=== PATIENT | female | born 1985 | race Caucasian/White ===

== ENCOUNTER 2017-11-18 09:32 | Emergency (ER) | payer OTHER ==
[~2017-11-18] VITALS: Ht 157.5 cm; Wt 79.4 kg
[2017-11-18 09:40] VITALS: BP 112/89
[2017-11-18] MEDS ORDERED: IV NORMAL SALINE 1,000ML 1,000 ML IV SCH (09:59)
[2017-11-18] MEDS ORDERED: 0.9 % SODIUM CHLORIDE 10 ML DISP.SYRIN. IV PRN (10:00)
[2017-11-18] MEDS ORDERED: ONDANSETRON PF 4 MG/2 ML VIAL. IV ONE (10:15)
[2017-11-18] MEDS ORDERED: KETOROLAC 30 MG/ML VIAL. IV ONE (10:15)
--- NOTE | 2017-11-18 10:16 | PHYS DOC ---
Past History Past Medical History: No Pertinent History Past Surgical History: , Hysterectomy Alcohol Use: Occasionally Drug Use: None Adult General Chief Complaint Chief Complaint: BACK PAIN OR INJURY HPI HPI 32-year-old female patient states she woke up 5 AM because of severe left flank pain as a constant cramping pain with radiation to lower abdomen. Patient rated her pain 10 over 10 and states she had total of 3 episodes of vomiting including one episode of vomiting at arrival to ER. Patient complaining of dysuria without hematuria or frequency. Patient states the pain getting better and worse and rated her pain 6/10 at arrival to ER and states she had the same pain 2 years ago with another episode of kidney stone. She denies fever and chills and is sent dehydration. Review of Systems Review of Systems Constitutional: Denies fever or chills [] Eyes: Denies change in visual acuity, redness, or eye pain [] HENT: Denies nasal congestion or sore throat [] Respiratory: Denies cough or shortness of breath [] Cardiovascular: No additional information not addressed in HPI [] GI: Reports abdominal pain, nausea, vomiting, denies bloody stools or diarrhea [ ] : Reports dysuria, denies frequency and hematuria ,[] Musculoskeletal: Reports back pain, denies joint pain [] Integument: Denies rash or skin lesions [] Neurologic: Denies headache, focal weakness or sensory changes [] Endocrine: Denies polyuria or polydipsia [] All other systems were reviewed and found to be within normal limits, except as documented in this note. Current Medications Current Medications Current Medications Medications (Trade) Dose Ordered Sig/[facility] Start Time Stop Time Status Last Admin Dose Admin Ketorolac Tromethamine (Toradol) 30 mg 1X ONCE 11/18/17 10:00 11/18/17 10:01 UNV Ondansetron HCl (Zofran) 4 mg 1X ONCE 11/18/17 10:00 11/18/17 10:01 UNV Sodium Chloride (Normal Saline Flush) 10 ml QSHIFT PRN 11/18/17 10:00 UNV Physical Exam Physical Exam Constitutional: Well developed, well nourished, other rate distress, non-toxic appearance. [] HENT: Normocephalic, atraumatic, oropharynx moist, no oral exudates. [] Eyes: PERRLA, EOMI, conjunctiva normal, no discharge. [] Neck: Normal range of motion, no tenderness, supple, no stridor. [] Cardiovascular:Heart rate regular rhythm, no murmur [] Lungs & Thorax: Bilateral breath sounds clear to auscultation [] Abdomen: Bowel sounds normal, soft, no tenderness, no masses, no pulsatile masses. [] Skin: Warm, dry, no erythema, no rash. [] Back: No tenderness, left CVA tenderness Extremities: No tenderness, no cyanosis, no clubbing, ROM intact, no edema. [] Neurologic: Alert and oriented X 3, normal motor function, normal sensory function, no focal deficits noted. [] Psychologic: Affect normal, judgement normal, mood normal. [] Current Patient Data Vital Signs Vital Signs Date Time Temp Pulse Resp B/P (MAP) Pulse Ox O2 Delivery O2 Flow Rate FiO2 11/18/17 09:40 97.7 89 16 99 Room Air EKG EKG [] Radiology/Procedures Radiology/Procedures [] [place] [address] IMAGING REPORT Signed PATIENT: YINKA NAZARIO ACCOUNT: [id number] : 1985 LOCATION: ER AGE: 32 SEX: F EXAM STATUS: REG ER ORD. PHYSICIAN: JENNY RAYO MD REASON: left flank pain PROCEDURE: CT ABDOMEN PELVIS WO CONTRAST CT abdomen and pelvis without contrast Technique: Helical multiplanar reconstructed noncontrast CT imaging of the abdomen and pelvis was acquired. History: Left flank pain for one day, history of kidney stones. Abdomen findings: Liver, gallbladder, pancreas, adrenal glands, spleen and kidneys are unremarkable. No perinephric edema, nephroureterolithiasis or hydronephrosis. The appendix is negative with a diameter of 3 mm. No obstruction or inflammatory change of the GI tract. Lung bases and bones are unremarkable. Mild disc bulge at L5-S1. Pelvis findings: Hysterectomy. There is mild groundglass density surrounding the bladder could be edema cystitis. No bladder calculi. Pelvic phleboliths are present none of which localized to the distal ureters to suggest a ureteral calculus. Trace dependent pelvic fluid of the cul-de-sac. Right ovary absent or atrophic and obscured by surrounding bowel loops. Left ovary is enlarged associated with a 3.5 cm cystic lesion with an internal density of 18 units. There is a surgical clip along the lateral margin of the left ovary and lesion perhaps from prior tubal ligation. At the right perirectal fat there is a 10 mm soft tissue nodule perhaps a enlarged lymph node. Bones are unremarkable. Impression: 1. Mild groundglass edema surrounding the bladder could be indicative of cystitis. No nephroureterolithiasis or hydronephrosis. 2. The appendix is negative. 3. Hysterectomy. Left ovary enlarged associated with a 3.5 cm cystic lesion. This could be a follicular or hemorrhagic cyst although cystic neoplasm or changes from ovarian torsion are not excluded for which sonography could provide further assessment based on the level of clinical suspicion. 4. 10 mm soft tissue nodule of the right perirectal fat could be a mildly enlarged lymph node. The rectum is unremarkable. DICTATED AND SIGNED BY: ADELA PEREZ MD DATE: 11/18/17 7694 CC: JENNY RAYO MD; ALEKSANDRA NELSON APRN ~ Course & Med Decision Making Course & Med Decision Making Pertinent Labs and Imaging studies reviewed. (See chart for details) Evaluation of patient in ER showed 32-year-old female patient complaining of flank pain and nausea and vomiting. Patient had left CVA tenderness and treated with IV fluid and Zofran and Toradol and better. Patient was working on his associated pain did not change. Patient had fentanyl and states the pain improved but returned again. Patient had unremarkable labs except for mild hematuria. CT of abdomen and pelvis showed mild bladder edema related to cystitis without urolithiasis. Patient informed about the test result and needs to follow-up with her primary care physician. Dragon Disclaimer Dragon Disclaimer This electronic medical record was generated, in whole or in part, using a voice recognition dictation system. Departure Departure: Impression: Primary Impression: Left flank pain Additional Impressions: Cystitis Nausea and vomiting Disposition: 01 HOME, SELF-CARE (At ) Condition: IMPROVED Referrals: ALEKSANDRA NELSON APRN (PCP) Patient Instructions: Flank Pain Additional Instructions: Drink plenty of liquids Follow-up with your primary care physician in 3-5 days Return to ER if not getting better Scripts Ciprofloxacin Hcl (CIPRO) 250 Mg Tablet 1 TAB PO BID, #6 TAB Prov: JENNY RAYO MD 11/18/17 Phenazopyridine Hcl (PYRIDIUM) 100 Mg Tablet 100 MG PO BID, #10 TAB Prov: JENNY RAYO MD 11/18/17 [Percogesic] No Conflict Check 1 TAB PO QID Y for PAIN, #14 Prov: JENNY RAYO MD 11/18/17 Problem Qualifiers JENNY RAYO MD Nov 18, 2017 10:16
[2017-11-18 10:17] LABS: BASO # 0.1 x10^3/uL (0.0-0.2); BASO % 1 % (0-3); EOS # 0.3 x10^3/uL (0.0-0.7); EOS % 3 % (0-3); HEMATOCRIT 42.4 % (36.0-47.0); HEMOGLOBIN 14.3 g/dL (12.0-15.5); LYMPH # 1.8 x10^3/uL (1.0-4.8); LYMPH % 20 % (24-48); MEAN CORPUSCULAR HEMOGLOBIN 30 pg (25-35); MEAN CORPUSCULAR HGB CONC 34 g/dL (31-37); MEAN CORPUSCULAR VOLUME 89 fL (79-100); MONO # 0.6 x10^3/uL (0.0-1.1); MONO % 7 % (0-9); NEUT # 6.2 x10^3uL (1.8-7.7); NEUT % 69 % (31-73); PLATELET COUNT 229 x10^3/uL (140-400); RED BLOOD COUNT 4.79 x10^6/uL (3.50-5.40); RED CELL DISTRIBUTION WIDTH 12.7 % (11.5-14.5)
[2017-11-18 10:28] LABS: ALBUMIN 4.2 g/dL (3.4-5.0); ALBUMIN/GLOBULIN RATIO 1.1 (1.0-1.7); CALCIUM 9.3 mg/dL (8.5-10.1); CREATININE 0.9 mg/dL (0.6-1.0); GFR 72.1; POTASSIUM 3.5 mmol/L (3.5-5.1); TOTAL BILIRUBIN 0.5 mg/dL (0.2-1.0)
--- NOTE | 2017-11-18 11:08 | RAD ---
CT abdomen and pelvis without contrast Technique: Helical multiplanar reconstructed noncontrast CT imaging of the abdomen and pelvis was acquired. History: Left flank pain for one day, history of kidney stones. Abdomen findings: Liver, gallbladder, pancreas, adrenal glands, spleen and kidneys are unremarkable. No perinephric edema, nephroureterolithiasis or hydronephrosis. The appendix is negative with a diameter of 3 mm. No obstruction or inflammatory change of the GI tract. Lung bases and bones are unremarkable. Mild disc bulge at L5-S1. Pelvis findings: Hysterectomy. There is mild groundglass density surrounding the bladder could be edema cystitis. No bladder calculi. Pelvic phleboliths are present none of which localized to the distal ureters to suggest a ureteral calculus. Trace dependent pelvic fluid of the cul-de-sac. Right ovary absent or atrophic and obscured by surrounding bowel loops. Left ovary is enlarged associated with a 3.5 cm cystic lesion with an internal density of 18 units. There is a surgical clip along the lateral margin of the left ovary and lesion perhaps from prior tubal ligation. At the right perirectal fat there is a 10 mm soft tissue nodule perhaps a enlarged lymph node. Bones are unremarkable. Impression: 1. Mild groundglass edema surrounding the bladder could be indicative of cystitis. No nephroureterolithiasis or hydronephrosis. 2. The appendix is negative. 3. Hysterectomy. Left ovary enlarged associated with a 3.5 cm cystic lesion. This could be a follicular or hemorrhagic cyst although cystic neoplasm or changes from ovarian torsion are not excluded for which sonography could provide further assessment based on the level of clinical suspicion. 4. 10 mm soft tissue nodule of the right perirectal fat could be a mildly enlarged lymph node. The rectum is unremarkable.
[2017-11-18 12:08] LABS: BILIRUBIN,URINE NEG (NEG); CLARITY,URINE CLEAR; COLOR,URINE YELLOW; GLUCOSE,URINE NEG (NEG); NITRITE,URINE NEG (NEG); UROBILINOGEN,URINE 0.2 mg/dL (0.2 mg/dL); WBC,URINE RARE /HPF (0-4)
[2017-11-18 12:09] LABS: BACTERIA,URINE 0 /HPF (0-FEW); SQUAMOUS EPITHELIAL CELL,UR OCC /LPF
[2017-11-18] MEDS ORDERED: PHEN100T82 PO (12:34)
[2017-11-18] MEDS ORDERED: CIPR250T30 PO (12:34)
[2017-11-18] MEDS ORDERED: Percogesic PO (12:34)
== END 2017-11-18 12:50 | disposition home or self-care (01) ==
LOC: ER 09:32
DX: N30.90 Cystitis, unspecified without hematuria (principal); Z90.710 Acquired absence of both cervix and uterus
CPT/HCPCS: 36415; 74176; 80053; 81001; 83690; 85025; 96361; 96374; 96375; 99285; J1885; J2405; J3010; J7030

== ENCOUNTER 2018-01-09 13:23 | Emergency (ER) | payer OTHER ==
[~2018-01-09] VITALS: Ht 157.5 cm; Wt 79.4 kg
[~2018-01-09 13:23] MED LIST: CIPR250T30 PO; PHEN100T82 PO; Percogesic PO
[2018-01-09 14:14] LABS: BASO % 1 % (0-3); EOS # 0.5 x10^3/uL (0.0-0.7); EOS % 6 % (0-3); HEMATOCRIT 43.4 % (36.0-47.0); HEMOGLOBIN 14.6 g/dL (12.0-15.5); LYMPH # 1.8 x10^3/uL (1.0-4.8); LYMPH % 24 % (24-48); MEAN CORPUSCULAR HEMOGLOBIN 30 pg (25-35); MEAN CORPUSCULAR HGB CONC 34 g/dL (31-37); MEAN CORPUSCULAR VOLUME 89 fL (79-100); MONO # 0.6 x10^3/uL (0.0-1.1); MONO % 7 % (0-9); NEUT # 4.6 x10^3uL (1.8-7.7); NEUT % 62 % (31-73); PLATELET COUNT 237 x10^3/uL (140-400); RED BLOOD COUNT 4.88 x10^6/uL (3.50-5.40); WHITE BLOOD COUNT 7.4 x10^3/uL (4.0-11.0)
[2018-01-09 14:19] LABS: BACTERIA,URINE 0 /HPF (0-FEW); BILIRUBIN,URINE NEG (NEG); CLARITY,URINE HAZY; COLOR,URINE YELLOW; GLUCOSE,URINE NEG (NEG); NITRITE,URINE NEG (NEG); RBC,URINE 0 /HPF (0-2); SQUAMOUS EPITHELIAL CELL,UR FEW /LPF; UROBILINOGEN,URINE 0.2 mg/dL (0.2 mg/dL); WBC,URINE 0 /HPF (0-4)
[2018-01-09 14:27] LABS: ALBUMIN 4.1 g/dL (3.4-5.0); ALBUMIN/GLOBULIN RATIO 1.1 (1.0-1.7); CALCIUM 9.2 mg/dL (8.5-10.1); CREATININE 0.8 mg/dL (0.6-1.0); GFR 82.6; POTASSIUM 3.7 mmol/L (3.5-5.1); TOTAL BILIRUBIN 0.6 mg/dL (0.2-1.0); TOTAL PROTEIN 7.9 g/dL (6.4-8.2)
[2018-01-09] MEDS ORDERED: ONDANSETRON PF 4 MG/2 ML VIAL. IV ONE (14:45)
[2018-01-09] MEDS ORDERED: IV NORMAL SALINE 1,000ML 1,000 ML IV ONE (14:45)
--- NOTE | 2018-01-09 14:48 | ED.ADGEN ---
Past History Past Medical History: Other Past Surgical History: Hysterectomy Alcohol Use: Occasionally Drug Use: None Adult General Chief Complaint Chief Complaint Abdominal pain HPI HPI Patient is a 32-year-old female presents with intermittent right upper call daily abdominal pain 6 days. Pain is this grabbed his cramping, last for minutes to hours at a time. It is worse after eating is related moderate to severe and nonradiating and nonmigratory. Pain is associated with nausea and vomiting. One episodes of diarrhea. Vomitus contained food contents and bile. No fever chills or sweats.[] Review of Systems Review of Systems ROS as per HPI. All other systems were reviewed and found to be within normal limits, except as documented in this note. Current Medications Current Medications Current Medications Medications (Trade) Dose Ordered Sig/Alise Start Time Stop Time Status Last Admin Dose Admin Fentanyl Citrate (Fentanyl 2ml Vial) 50 mcg 1X ONCE 01/09/18 14:45 01/09/18 14:46 DC 01/09/18 15:33 50 MCG Ondansetron HCl (Zofran) 4 mg 1X ONCE 01/09/18 14:45 01/09/18 14:46 DC 01/09/18 15:33 4 MG Sodium Chloride 1,000 ml @ 1,000 mls/hr 1X ONCE 01/09/18 14:45 01/09/18 15:44 01/09/18 14:45 1,000 MLS/HR Allergies Allergies Allergies Coded Allergies Type Severity Reaction Last Updated Verified aspirin Allergy Unknown 11/18/17 Yes Physical Exam Physical Exam Constitutional: Well developed, well nourished, no acute distress, non-toxic appearance. [] HENT: Normocephalic, atraumatic, bilateral external ears normal, oropharynx moist, nose normal. [] Eyes: PERRLA, EOMI, conjunctiva normal, no discharge. [] Neck: Normal range of motion.[] Cardiovascular:Heart rate regular rhythm, no murmur [] Lungs & Thorax: Bilateral breath sounds clear to auscultation [] Abdomen: Bowel sounds normal, soft, RUQ pain/tenderness, + Abdi's sign. [] Skin: Warm, dry, no erythema, no rash. [] Back: No tenderness, no CVA tenderness. [] Extremities: No tenderness, no edema. [] Neurologic: Alert and oriented X 3, normal motor function, normal sensory function, no focal deficits noted. [] Psychologic: Affect normal, judgement normal, mood normal. [] Current Patient Data Vital Signs Vital Signs Date Time Temp Pulse Resp B/P (MAP) Pulse Ox O2 Delivery O2 Flow Rate FiO2 01/09/18 15:33 18 98 Room Air 01/09/18 15:01 81 137/83 (101) 01/09/18 13:30 98.1 Lab Results Laboratory Tests Test 01/09/18 13:55 01/09/18 13:56 Urine Collection Type Unknown Urine Color Yellow Urine Clarity Hazy Urine pH 8.0 Urine Specific [place] 1.020 Urine Protein Neg (NEG-TRACE) Urine Glucose (UA) Neg mg/dL (NEG) Urine Ketones (Stick) Neg mg/dL (NEG) Urine Blood Neg (NEG) Urine Nitrite Neg (NEG) Urine Bilirubin Neg (NEG) Urine Urobilinogen Dipstick 0.2 mg/dL (0.2 mg/dL) Urine Leukocyte Esterase Neg (NEG) Urine RBC 0 /HPF (0-2) Urine WBC 0 /HPF (0-4) Urine Squamous Epithelial Cells Few /LPF Urine Bacteria 0 /HPF (0-FEW) White Blood Count 7.4 x10^3/uL (4.0-11.0) Red Blood Count 4.88 x10^6/uL (3.50-5.40) Hemoglobin 14.6 g/dL (12.0-15.5) Hematocrit 43.4 % (36.0-47.0) Mean Corpuscular Volume 89 fL (79-100) Mean Corpuscular Hemoglobin 30 pg (25-35) Mean Corpuscular Hemoglobin Concent 34 g/dL (31-37) Red Cell Distribution Width 13.0 % (11.5-14.5) Platelet Count 237 x10^3/uL (140-400) Neutrophils (%) (Auto) 62 % (31-73) Lymphocytes (%) (Auto) 24 % (24-48) Monocytes (%) (Auto) 7 % (0-9) Eosinophils (%) (Auto) 6 % (0-3) H Basophils (%) (Auto) 1 % (0-3) Neutrophils # (Auto) 4.6 x10^3uL (1.8-7.7) Lymphocytes # (Auto) 1.8 x10^3/uL (1.0-4.8) Monocytes # (Auto) 0.6 x10^3/uL (0.0-1.1) Eosinophils # (Auto) 0.5 x10^3/uL (0.0-0.7) Basophils # (Auto) 0.0 x10^3/uL (0.0-0.2) Sodium Level 139 mmol/L (136-145) Potassium Level 3.7 mmol/L (3.5-5.1) Chloride Level 102 mmol/L (98-107) Carbon Dioxide Level 29 mmol/L (21-32) Anion Gap 8 (6-14) Blood Urea Nitrogen 10 mg/dL (7-20) Creatinine 0.8 mg/dL (0.6-1.0) Estimated GFR (Cockcroft-Gault) 82.6 BUN/Creatinine Ratio 13 (6-20) Glucose Level 91 mg/dL (70-99) Calcium Level 9.2 mg/dL (8.5-10.1) Total Bilirubin 0.6 mg/dL (0.2-1.0) Aspartate Amino Transferase (AST) 14 U/L (15-37) L Alanine Aminotransferase (ALT) 23 U/L (14-59) Alkaline Phosphatase 69 U/L (46-116) Total Protein 7.9 g/dL (6.4-8.2) Albumin 4.1 g/dL (3.4-5.0) Albumin/Globulin Ratio 1.1 (1.0-1.7) Lipase 142 U/L (73-393) EKG EKG [] Radiology/Procedures Radiology/Procedures [Upper quadrant ultrasound: nl Gallbladder ultrasound per radiology ] Course & Med Decision Making Course & Med Decision Making Pertinent Labs and Imaging studies reviewed. (See chart for details) []Right upper quadrant pain since she was of biliary colic. Lab, and imaging studies nondiagnostic. Symptoms improved with treatment. Vital signs stable. Discussed with patient alternative diagnoses, as well as, the possible functional gallbladder disease and the need for follow up testing. Recommend supportive care. Return precautions reviewed. Patient verbalizes understanding and agreement discharge instructions. Final Impression Final Impression [1. Right upper quadrant abdominal pain] Dragon Disclaimer Dragon Disclaimer This electronic medical record was generated, in whole or in part, using a voice recognition dictation system. JOANNA GREEN DO Jan 09, 2018 14:48
--- NOTE | 2018-01-09 15:24 | RAD ---
EXAM: Abdomen sonogram limited. HISTORY: Right upper quadrant pain. TECHNIQUE: Sonographic imaging of the abdomen was performed. COMPARISON: None. FINDINGS: The liver is normal in size. No focal hepatic lesion is seen. The gallbladder, common bile duct, right kidney, pancreas and inferior vena cava are unremarkable. IMPRESSION: Unremarkable abdomen sonogram. Electronically signed by: Suzanne Thomas MD (01/09/2018 3:21 PM) [facility]
[2018-01-09] MEDS ORDERED: HYDR-971 PO (15:50)
[2018-01-09] MEDS ORDERED: ONDA4TAB10 SL (15:50)
[2018-01-09 16:27] VITALS: BP 111/46
== END 2018-01-09 16:32 | disposition home or self-care (01) ==
LOC: ER 13:23
DX: R10.11 Right upper quadrant pain (principal); R11.2 Nausea with vomiting, unspecified; R19.7 Diarrhea, unspecified; Z90.710 Acquired absence of both cervix and uterus; Z88.6 Allergy status to analgesic agent
CPT/HCPCS: 36415; 76705; 80053; 81001; 83690; 85025; 96361; 96374; 96375; 99285; J2405; J3010; J7030

== ENCOUNTER 2018-05-11 19:35 | Emergency (ER) | payer SELFPAY ==
[~2018-05-11] VITALS: Ht 160 cm; Wt 72.6 kg
[~2018-05-11 19:35] MED LIST changes: +HYDR-971 PO; +ONDA4TAB10 SL
[2018-05-11] MEDS ORDERED: IV NORMAL SALINE 1,000ML 1,000 ML IV ONE ×2 (20:00→21:15)
--- NOTE | 2018-05-11 20:02 | ED.ADGEN ---
Past History Past Medical History: Other Past Surgical History: Hysterectomy Alcohol Use: Occasionally Drug Use: None Adult General Chief Complaint Chief Complaint Headache, dizziness HPI HPI Patient is a 33-year-old female with reported history of chronic migraine headaches and ischemic CVA treated with TPA at outside ED 2 weeks ago who presents with gradual onset frontal headache starting approximately 4 hours prior to ED arrival. Headache is described as throbbing with episodes of sharp pain. It is rated moderate to severe and is associated with light sensitivity, nausea and dizziness scribed as vertigo. Reports nausea without vomiting. No neck pain. This is a different location and quality as chronic migraine headaches. Patient did take Fioricet earlier today with limited response. Reports facial pain/sinus tenderness, no congestion, rhinorrhea, fever, rash, new extremity weakness or loss of sensation. Reports residual right upper and lower extremity weakness without worsening. Blood pressure is noted to be 157/ 100. States blood pressure is normally well controlled and does not take routine blood pressure medication. Patient also states she underwent extensive post stroke workup at [facility] reports negative echocardiogram and carotid artery testing. No other acute symptoms or complaints[] Review of Systems Review of Systems Review symptoms as per history of present illness. All other review symptoms are negative. All other systems were reviewed and found to be within normal limits, except as documented in this note. Current Medications Current Medications Current Medications Medications (Trade) Dose Ordered Sig/Alise Start Time Stop Time Status Last Admin Dose Admin Diphenhydramine HCl (Benadryl) 25 mg 1X ONCE 05/11/18 21:15 05/11/18 21:16 DC 05/11/18 21:08 25 MG Fentanyl Citrate (Fentanyl 2ml Vial) 50 mcg 1X ONCE 05/11/18 21:15 05/11/18 21:16 DC 05/11/18 21:08 50 MCG Metoclopramide HCl (Reglan Vial) 10 mg 1X ONCE 05/11/18 20:15 05/11/18 20:16 DC 05/11/18 20:17 10 MG Prochlorperazine Edisylate (Compazine) 10 mg 1X ONCE 05/11/18 20:15 05/11/18 20:16 DC 05/11/18 20:17 10 MG Sodium Chloride 1,000 ml @ 1,000 mls/hr 1X ONCE 05/11/18 21:15 05/11/18 22:14 05/11/18 21:08 1,000 MLS/HR Allergies Allergies Allergies Coded Allergies Type Severity Reaction Last Updated Verified aspirin Allergy Unknown 11/18/17 Yes Physical Exam Physical Exam Constitutional: Well developed, well nourished, moderate discomfort secondary to pain. [] HENT: Normocephalic, atraumatic, bilateral external ears normal, oropharynx moist, no oral exudates, nose normal. [] Eyes: PERRLA, EOMI, conjunctiva normal, no nystagmus. [] Neck: Normal range of motion, no tenderness. [] Cardiovascular:Heart rate regular rhythm, no murmur [] Lungs & Thorax: Bilateral breath sounds clear to auscultation. [] Abdomen: Bowel sounds normal, soft, no tenderness. [] Skin: Warm, dry, no erythema, no rash. [] Back: No tenderness, no CVA tenderness. [] Extremities: No tenderness. [] Neurologic: Alert and oriented X 3, CN 2-12 grossly intact, right upper and lower ext, motor function 4/5, normal sensory function. [] Psychologic: Affect normal, judgement normal, mood normal. [] Current Patient Data Vital Signs Vital Signs Date Time Temp Pulse Resp B/P (MAP) Pulse Ox O2 Delivery O2 Flow Rate FiO2 05/11/18 21:16 59 16 90/57 (68) 91 Room Air 05/11/18 19:40 98.1 Lab Results Laboratory Tests Test 05/11/18 19:40 05/11/18 20:00 Serum Test, Qualitative Negative (NEG) White Blood Count 8.8 x10^3/uL (4.0-11.0) Red Blood Count 4.86 x10^6/uL (3.50-5.40) Hemoglobin 14.4 g/dL (12.0-15.5) Hematocrit 42.9 % (36.0-47.0) Mean Corpuscular Volume 88 fL (79-100) Mean Corpuscular Hemoglobin 30 pg (25-35) Mean Corpuscular Hemoglobin Concent 34 g/dL (31-37) Red Cell Distribution Width 12.3 % (11.5-14.5) Platelet Count 272 x10^3/uL (140-400) Neutrophils (%) (Auto) 49 % (31-73) Lymphocytes (%) (Auto) 33 % (24-48) Monocytes (%) (Auto) 6 % (0-9) Eosinophils (%) (Auto) 10 % (0-3) H Basophils (%) (Auto) 1 % (0-3) Neutrophils # (Auto) 4.3 x10^3uL (1.8-7.7) Lymphocytes # (Auto) 2.9 x10^3/uL (1.0-4.8) Monocytes # (Auto) 0.6 x10^3/uL (0.0-1.1) Eosinophils # (Auto) 0.9 x10^3/uL (0.0-0.7) H Basophils # (Auto) 0.1 x10^3/uL (0.0-0.2) Sodium Level 140 mmol/L (136-145) Potassium Level 4.0 mmol/L (3.5-5.1) Chloride Level 104 mmol/L (98-107) Carbon Dioxide Level 28 mmol/L (21-32) Anion Gap 8 (6-14) Blood Urea Nitrogen 13 mg/dL (7-20) Creatinine 1.0 mg/dL (0.6-1.0) Estimated GFR (Cockcroft-Gault) 63.5 BUN/Creatinine Ratio 13 (6-20) Glucose Level 84 mg/dL (70-99) Calcium Level 9.2 mg/dL (8.5-10.1) Total Bilirubin 0.2 mg/dL (0.2-1.0) Aspartate Amino Transferase (AST) 22 U/L (15-37) Alanine Aminotransferase (ALT) 50 U/L (14-59) Alkaline Phosphatase 59 U/L (46-116) Total Protein 7.8 g/dL (6.4-8.2) Albumin 4.2 g/dL (3.4-5.0) Albumin/Globulin Ratio 1.2 (1.0-1.7) EKG EKG [] Radiology/Procedures Radiology/Procedures [CT head: No acute intracranial findings per radiology report] Course & Med Decision Making Course & Med Decision Making Pertinent Labs and Imaging studies reviewed. (See chart for details) [Headache with dizziness, gradual onset.. This is not the worst headache of patient's life. CT head nonacute. No neurologic deficits on exam. Symptoms significantly improved with treatment. Reports recent treatment of ischemic CVA with TPA. Patient states she had a normal or negative MRI post TPA administration. Patient does have a neurologist which she is assigned to follow- up with. Recommendations are supportive care with neurology follow-up early next week. Return precautions reviewed.] Final Impression Final Impression [1 Headache 2. Dizziness] Dragon Disclaimer Dragon Disclaimer This electronic medical record was generated, in whole or in part, using a voice recognition dictation system. JOANNA GREEN DO May 11, 2018 20:02
[2018-05-11] MEDS ORDERED: METOCLOPRAMIDE HCL 10 MG/2 ML VIAL. IV ONE (20:15)
[2018-05-11] MEDS ORDERED: PROCHLORPERAZINE 10 MG/2 ML VIAL. IV ONE (20:15)
[2018-05-11 20:31] LABS: PREG TEST PT QUAL NEGATIVE (NEG)
[2018-05-11 20:33] LABS: ALBUMIN 4.2 g/dL (3.4-5.0); ALBUMIN/GLOBULIN RATIO 1.2 (1.0-1.7); CALCIUM 9.2 mg/dL (8.5-10.1); GFR 63.5; TOTAL BILIRUBIN 0.2 mg/dL (0.2-1.0); TOTAL PROTEIN 7.8 g/dL (6.4-8.2)
[2018-05-11 20:34] LABS: BASO # 0.1 x10^3/uL (0.0-0.2); BASO % 1 % (0-3); EOS # 0.9 x10^3/uL (0.0-0.7); EOS % 10 % (0-3); HEMATOCRIT 42.9 % (36.0-47.0); HEMOGLOBIN 14.4 g/dL (12.0-15.5); LYMPH # 2.9 x10^3/uL (1.0-4.8); LYMPH % 33 % (24-48); MEAN CORPUSCULAR HEMOGLOBIN 30 pg (25-35); MEAN CORPUSCULAR HGB CONC 34 g/dL (31-37); MEAN CORPUSCULAR VOLUME 88 fL (79-100); MONO # 0.6 x10^3/uL (0.0-1.1); MONO % 6 % (0-9); NEUT # 4.3 x10^3uL (1.8-7.7); NEUT % 49 % (31-73); PLATELET COUNT 272 x10^3/uL (140-400); RED BLOOD COUNT 4.86 x10^6/uL (3.50-5.40); RED CELL DISTRIBUTION WIDTH 12.3 % (11.5-14.5); WHITE BLOOD COUNT 8.8 x10^3/uL (4.0-11.0)
[2018-05-11] MEDS ORDERED: diphenhydrAMINE 50 MG/ML VIAL IVP ONE (21:15)
[2018-05-11 21:16] VITALS: BP 90/57
--- NOTE | 2018-05-11 21:19 | RAD ---
EXAM: CT HEAD WITHOUT CONTRAST. HISTORY: Severe headache. TECHNIQUE: Computed tomography of the head was performed without intravenous contrast. COMPARISON: None. FINDINGS: There is no intracranial hemorrhage. Mendoza-white differentiation is preserved. The ventricles are normal in size and position. The visualized paranasal sinuses appear clear. The orbits are unremarkable. The temporal bones are unremarkable. The calvarium reveals no suspicious lesions. IMPRESSION: 1. No acute intracranial findings. *One or more of the following individualized dose reduction techniques were utilized for this examination: 1. Automated exposure control. 2. Adjustment of the mA and/or kV according to patient size. 3. Use of iterative reconstruction technique. Electronically signed by: Mickey Coreas MD (05/11/2018 9:16 PM) [facility]
== END 2018-05-11 22:10 | disposition home or self-care (01) ==
LOC: ER 19:35
DX: R51 Headache (principal); R42 Dizziness and giddiness; G43.909 Migraine, unspecified, not intractable, without status migrainosus; Z86.73 Personal history of transient ischemic attack (TIA), and cerebral infarction without residual deficits; Z88.6 Allergy status to analgesic agent
CPT/HCPCS: 36415; 70450; 80053; 84703; 85025; 96361; 96374; 96375; 99285; J0780; J1200; J2765; J3010; J7030

== ENCOUNTER 2021-01-06 11:09 | Emergency (ER) | payer BC ==
[~2021-01-06] VITALS: Ht 160 cm; Wt 88.3 kg
[~2021-01-06 11:09] MED LIST changes: +HYDR-3165 PO; -HYDR-971 PO
--- NOTE | 2021-01-06 12:12 | PHYS DOC ---
Past History Past Medical History: Fibromyalgia, Migraines, Seizure, Stroke Past Surgical History: , Hysterectomy Alcohol Use: Rarely Drug Use: None General Adult EDM: Chief Complaint: CHEST PAIN HPI: HPI: Patient is a 35-year-old female coming in for left-sided chest pain that she describes as "achy". She says is not worse with movement or taking a deep breath, states has gotten worse since yesterday. Denies any cough but has subjective shortness of breath with walking and speaking. Denies any other recent illness. No personal history of heart disease. Patient states history of migraines and a prior stroke without any previous deficits. Says she used to smoke and stopped in July of this year. Patient states she also recently started having seizures and is being evaluated for that. They started in August of this year. Patient states there has been no identifiable focus for her seizures. Has remote family history of epilepsy. Review of Systems: Review of Systems: All other systems within normal limits except for as noted in the HPI Allergies: Allergies: Allergies Coded Allergies Type Severity Reaction Last Updated Verified No Known Drug Allergies 01/06/21 No Physical Exam: PE: Constitutional: Well developed, well nourished, no acute distress, non-toxic appearance. [] HENT: Normocephalic, atraumatic, bilateral external ears normal, nose normal. [] Eyes: PERRLA, conjunctiva normal, no discharge. [] Neck: No rigidity, supple, no stridor. [] Cardiovascular: Regular rate and rhythm, brisk cap refill. No murmurs or gallops [] Lungs & Thorax: Non labored symmetric respirations, no tachypnea or respiratory distress. Lungs clear to auscultation. No reproducible pain to palpation [] Abdomen: Soft, nondistended, no tenderness palpation. Skin: Warm, dry, no erythema, no rash. [] Back: Unremarkable Extremities: No deformities, range of motion grossly intact, no lower extremity edema [] Neurologic: Alert and oriented X 3, no focal deficits noted. [] Psychologic: Affect normal, judgement normal, mood normal. [] Current Patient Data: Vital Signs: Vital Signs Date Time Temp Pulse Resp B/P (MAP) Pulse Ox O2 Delivery O2 Flow Rate FiO2 01/06/21 11:15 97.9 75 18 131/73 (92) 99 Room Air EKG: EKG: Sinus rhythm, heart rate 70 bpm, normal axis, no ST elevation or depression, T waves remarkable. No ectopy. [] Radiology/Procedures: Radiology/Procedures: [address] [address] IMAGING REPORT Signed PATIENT: YINKA NAZARIO ACCOUNT: [id number] : 1985 LOCATION: ER AGE: 35 SEX: F EXAM STATUS: REG ER ORD. PHYSICIAN: AMELIA SERRANO MD REASON: chest pain, short of breath, 100mls omni 350 PROCEDURE: CT ANGIOGRAPHY CHEST EXAM: CT angiography of the chest with intravenous contrast. HISTORY: Chest pain. Shortness of breath. TECHNIQUE: Computed tomographic images of the chest were obtained following the administration of intravenous contrast according to angiography protocol. Multiplanar reformatting was performed and three dimensional maximum intensity projection images were obtained. *One or more of the following individualized dose reduction techniques were utilized for this examination: 1. Automated exposure control. 2. Adjustment of the mA and/or kV according to patient size. 3. Use of iterative reconstruction technique. COMPARISON: None. FINDINGS: There is no pulmonary embolism. The heart is normal in size. The aorta is normal in caliber. There is increased soft tissue density within the anterior mediastinum likely due to residual thymus. There is no lymphadenopathy. There is no infiltrate, pleural effusion or pneumothorax. There is no suspicious pulmonary nodule. There is no acute finding involving the upper abdomen. There is no acute or suspicious osseous finding. IMPRESSION: No evidence of pulmonary embolism or alternative acute thoracic finding. Electronically signed by: Suzanne Jaramillo MD (01/06/2021 12:44 PM) [id number] DICTATED AND SIGNED BY: SUZANNE JARAMILLO MD DATE: 01/06/21 1242 CC: AMELIA SERRANO MD; ALEKSANDRA NELSON WINE CONSULTANT ~MTH0 0 [] Heart Score: C/O Chest Pain: Yes HEART Score for Chest Pain: HEART Score for Chest Pain Response (Comments) Value History Slighlty/Non-Suspicious 0 ECG Normal 0 Age < 45 0 Risk Factors 1 or 2 Risk Factors 1 Troponin < Normal Limit 0 Total 1 Risk Factors: Risk Factors: DM, Current or recent (<one month) smoker, HTN, HLP, family history of CAD, obesity. Risk Scores: Score 0 - 3: 2.5% MACE over next 6 weeks - Discharge Home Score 4 - 6: 20.3% MACE over next 6 weeks - Admit for Clinical Observation Score 7 - 10: 72.7% MACE over next 6 weeks - Early Invasive Strategies Course & Med Decision Making: Course & Med Decision Making Pertinent Labs and Imaging studies reviewed. (See chart for details) [] Dragon Disclaimer: Dragon Disclaimer: This electronic medical record was generated, in whole or in part, using a voice recognition dictation system. Departure Departure: Impression: Primary Impression: Chest pain Disposition: HOME / SELF CARE / HOMELESS Condition: STABLE Referrals: ALEKSANDRA NELSON APRN (PCP) Patient Instructions: Chest Wall Pain Scripts Naproxen (NAPROSYN) 500 Mg Tablet 1 TAB PO BID PRN for PAIN for 10 Days, #20 TAB 0 Refills Prov: AMELIA SERRANO MD 01/06/21 AMELIA SERRANO MD Jan 06, 2021 12:12
[2021-01-06] MEDS ORDERED: IOHEXOL 350 MG/ML 100 ML VIAL. IV ONE (12:30)
[2021-01-06] MEDS ORDERED: CONTRAST GIVEN. MC PRN (12:30)
--- NOTE | 2021-01-06 12:46 | RAD ---
EXAM: CT angiography of the chest with intravenous contrast. HISTORY: Chest pain. Shortness of breath. TECHNIQUE: Computed tomographic images of the chest were obtained following the administration of int ravenous contrast according to angiography protocol. Multiplanar reformatting was performed and three dimensional maximum intensity projection images were obtained. *One or more of the following individualized dose reduction techniques were utilized for this examina tion: 1. Automated exposure control. 2. Adjustment of the mA and/or kV according to patient size. 3. Use of iterative reconstruction technique. COMPARISON: None. FINDINGS: There is no pulmonary embolism. The heart is normal in size. The aorta is normal in caliber . There is increased soft tissue density within the anterior mediastinum likely due to residual thymu s. There is no lymphadenopathy. There is no infiltrate, pleural effusion or pneumothorax. There is no suspicious pulmonary nodule. There is no acute finding involving the upper abdomen. There is no acut e or suspicious osseous finding. IMPRESSION: No evidence of pulmonary embolism or alternative acute thoracic finding. Electronically signed by: Suzanne Thomas MD (01/06/2021 12:44 PM) [id number]
[2021-01-06 12:51] LABS: BASO # 0.1 x10^3/uL (0.0-0.2); BASO % 1 % (0-3); EOS # 0.7 x10^3/uL (0.0-0.7); EOS % 9 % (0-3); HEMATOCRIT 42.9 % (36.0-47.0); HEMOGLOBIN 14.4 g/dL (12.0-15.5); LYMPH # 2.1 x10^3/uL (1.0-4.8); LYMPH % 28 % (24-48); MEAN CORPUSCULAR HEMOGLOBIN 30 pg (25-35); MEAN CORPUSCULAR HGB CONC 34 g/dL (31-37); MEAN CORPUSCULAR VOLUME 89 fL (79-100); MONO # 0.5 x10^3/uL (0.0-1.1); MONO % 7 % (0-9); NEUT # 4.1 x10^3uL (1.8-7.7); NEUT % 55 % (31-73); PLATELET COUNT 263 x10^3/uL (140-400); RED BLOOD COUNT 4.85 x10^6/uL (3.50-5.40); RED CELL DISTRIBUTION WIDTH 12.2 % (11.5-14.5); WHITE BLOOD COUNT 7.4 x10^3/uL (4.0-11.0)
[2021-01-06 12:55] LABS: CALCIUM 9.4 mg/dL (8.5-10.1); CREATININE 0.9 mg/dL (0.6-1.0); GFR 70.8; POTASSIUM 3.6 mmol/L (3.5-5.1)
[2021-01-06 13:01] LABS: ALBUMIN 4.1 g/dL (3.4-5.0); MAGNESIUM 2.1 mg/dL (1.8-2.4); TOTAL BILIRUBIN 0.5 mg/dL (0.2-1.0); TOTAL PROTEIN 8.1 g/dL (6.4-8.2)
[2021-01-06 13:13] LABS: BILIRUBIN,URINE NEG (NEG); CLARITY,URINE CLEAR; COLOR,URINE STRAW; GLUCOSE,URINE NEG (NEG); NITRITE,URINE NEG (NEG); UROBILINOGEN,URINE 0.2 mg/dL (0.2 mg/dL)
[2021-01-06 13:14] LABS: BACTERIA,URINE 0 /HPF (0-FEW); RBC,URINE 0 /HPF (0-2); WBC,URINE 0 /HPF (0-4)
[2021-01-06] MEDS ORDERED: KETOROLAC 15 MG/ML VIAL. IVP ONE (13:15)
[2021-01-06] MEDS ORDERED: NAPR-683 PO (13:47)
[2021-01-06 13:50] VITALS: BP 106/67
--- NOTE | 2021-01-06 18:33 | EKG ---
[address] [address] Test Date: 2021-01-06 Test Time: 11:16:31 Pat Name: YINKA NAZARIO Department: Room: Gender: F Ext Js Developer: KAITY : 1985 Requested By: AMELIA SERRANO Order Number: [id number] Reading MD: Measurements Intervals [place] Rate: 79 P: 59 [place]: 126 QRS: 31 QRSD: 84 T: 36 QT: 402 QTc: 467 Interpretive Statements SINUS RHYTHM NORMAL ECG RI6.02 No previous ECG available for comparison
== END 2021-01-06 14:11 | disposition home or self-care (01) ==
LOC: ER 11:09
DX: R07.89 Other chest pain (principal); R06.02 Shortness of breath; M79.7 Fibromyalgia; G43.909 Migraine, unspecified, not intractable, without status migrainosus; Z86.73 Personal history of transient ischemic attack (TIA), and cerebral infarction without residual deficits; Z98.890 Other specified postprocedural states; Z90.710 Acquired absence of both cervix and uterus
CPT/HCPCS: 36415; 71275; 80053; 81001; 83690; 83735; 84484; 85025; 93005; 96374; 99285; J1885; Q9967